=== PATIENT | female | born 1945 | race Caucasian/White ===

== ENCOUNTER → 2024-02-20 07:20 | Outpatient (REF) | payer MEDICARE, OTHER, SELFPAY | LOC: HWRCS 07:20 | PROVIDERS: ATTENDING PHYSICIAN Internal Medicine Cardiovascular Disease; FAMILY PHYSICIAN Family Medicine | DX: Z95.810 Presence of automatic (implantable) cardiac defibrillator (principal); I44.4 Left anterior fascicular block; I47.20 Ventricular tachycardia, unspecified; I34.0 Nonrheumatic mitral (valve) insufficiency | CPT/HCPCS: 93306 ==

== ENCOUNTER → 2024-03-17 10:22 | Outpatient (REF) | payer MEDICARE, OTHER, SELFPAY ==
[2024-03-17 11:07] LABS: % Basophils 0.6 % (0-2); % Eosinophils 5.8 % (0-6); % Immature Granulocytes 0.2 % (0-0.5); % Lymphocytes 25.7 % (20.5-51.1); % Monocytes 8.2 % (1.7-9.3); % Neutrophils 59.5 % (42.2-75.2); Absolute Eosinophils 0.3 10^3/uL (0-0.7); Absolute Lymphocytes 1.4 10^3/uL (1.2-3.4); Absolute Monocytes 0.4 10^3/uL (0.1-0.6); Absolute Neutrophils 3.2 10^3/uL (1.4-6.5); Hematocrit 38.1 % (37.0-47.0); Hemoglobin 12.7 g/dL (12.0-16.0); Mean Corp Hgb Conc. 33.3 g/dL (33.0-37.0); Mean Corpuscular Hgb 31.4 pg (27.0-31.0); Mean Corpuscular Volume 94.3 fL (81.0-99.0); Mean Platelet Volume 10.3 fL (7.4-10.4); Nucleated Red Blood Cells % 0 %; Platelet Count 187 10^3/uL (130-400); Red Blood Cell Count 4.04 10^6/uL (4.20-5.40); Red Cell Dist. Width 13.3 % (11.5-14.5); White Blood Cell Count 5.4 10^3/uL (4.8-10.8)
[2024-03-17 11:30] LABS: ALT (SGPT) 31 U/L (0-35); AST (SGOT) 31 U/L (14-36); Albumin 4.3 g/dl (3.5-5.0); Alkaline Phosphatase 83 U/L (38-126); Blood Urea Nitrogen 27 mg/dl (7-17); Carbon Dioxide 28 mmol/L (22-30); Chloride 104 mmol/L (98-107); Glucose 87 mg/dl (70-99); Potassium 4.8 mmol/L (3.5-5.1); Sodium 139 mmol/L (135-145); Total Bilirubin 0.7 mg/dl (0.2-1.3); Total Protein 6.5 g/dl (6.3-8.2); eGFR > 60.00
== END ==
LOC: SDSPAT 10:22
PROVIDERS: ATTENDING PHYSICIAN Internal Medicine Cardiovascular Disease; FAMILY PHYSICIAN Family Medicine; OTHER PHYSICIAN Internal Medicine Cardiovascular Disease
DX: Z01.818 Encounter for other preprocedural examination (principal); Z95.810 Presence of automatic (implantable) cardiac defibrillator; I47.21 Torsades de pointes; I44.4 Left anterior fascicular block
CPT/HCPCS: 36415; 80053; 85025; 93005

== ENCOUNTER 2024-03-26 06:26 | Day surgery (SDC) | payer MEDICARE, OTHER, SELFPAY ==
[2024-03-17 10:44] VITALS: BMI 28.5
[2024-03-26] VITALS (7 sets, daily range): BP systolic 112–130; BP diastolic 53–73; BMI 27.0
--- NOTE | 2024-03-26 08:28 | W.ICD.CONTRA ---
Post ICD/PEN RIDER-D
-
History of [place]?: No
LV Function
Left ventricular function study result?: Ejection Fraction >/= 40%
ACEI/ARB/ARNI
Patient already on ACEI/ARB/ARNI: No
Beta-Zoya
Patient already on Beta Zoya: Yes
--- NOTE | 2024-03-26 12:17 | ITS.CL.ICD ---
Security Incident Response Engineer - ICD
Implantable Cardioverter Defibrillator
Procedure Report:
Date of Procedure: Ju;y 2023..
Procedures: ICD pulse generator change.
Indication: Secondary prevention ICD. The initial ICD was placed at [facility] for recurrent syncope and inducible ventricular arrhythmias. The patient's life expectancy exceeds one year. No heart failure.
Performing physician: Kendrick Zuniga MD, [facility].
Implant: ICD Pulse Generator: [employer]; Model# D233; Serial# [id number].
Explanted ICD Pulse Generator (Implanted 10/18/2011):[employer]; Model E162; Serial# [id number].
Retained Leads (Implanted 10/18/2011):
RA: [employer]; Model# 4469; Serial# [id number].
RV: [employer]; Model# 0295; Serial# [id number].
Technique: A time-out was performed. The procedure site was identified. The anesthesia service anesthetized the patient. Preoperative cefazolin was administered before the skin incision. The patient was prepped and draped in the usual fashion. Local
anesthetic was applied to the left pre-pectoral subcutaneous tissue. A 3-inch incision was made over the pulse generator. The capsule was entered with Bovie cautery. The old ICD pulse generator was explanted. No Bovie cautery was applied to the lead
system. The leads were appropriately attached to the new ICD pulse generator. The pocket was irrigated with an antibiotic solution. Hemostasis was excellent. The device and leads were placed in the pocket. The incision was closed in three layers
with an absorbable suture. Steri-strips and an dressing were applied. There was no blood loss. There were no complications. No fluoroscopy was used.
Lead Analysis:
RA lead: P: 5 mV; Threshold: 0.7 V @ 0.4 ms; Impedance: 539 ohms.
RV lead: R: 12 mV; Threshold: 0.5 V @ 0.4 ms; Impedance: 794 ohms. Shock impedance 89 ohms. The SVC coil had a top normal impedance and was disabled in the shocking vector.
Final Programming: VT 180 bpm; VF 220 bpm; Jerrod: DDD 60-130 bpm.
Conclusion: Uncomplicated ICD change. The ICD system is MRI safe/conditional.
Recommendation: Routine post ICD care.
cc: Ioana Ojeda MD and Vince Escobar DO.
== END 2024-03-26 10:30 | disposition home or self-care (01) ==
LOC: CATH 06:26
PROVIDERS: ATTENDING PHYSICIAN Internal Medicine Cardiovascular Disease; FAMILY PHYSICIAN Family Medicine; OTHER PHYSICIAN Internal Medicine Cardiovascular Disease
DX: Z45.02 Encounter for adjustment and management of automatic implantable cardiac defibrillator (principal); I47.29 Other ventricular tachycardia; R55 Syncope and collapse; I48.91 Unspecified atrial fibrillation; E78.5 Hyperlipidemia, unspecified; I44.4 Left anterior fascicular block; I87.2 Venous insufficiency (chronic) (peripheral); I73.9 Peripheral vascular disease, unspecified; Z79.899 Other long term (current) drug therapy; Z79.890 Hormone replacement therapy; I47.10 Supraventricular tachycardia, unspecified
CPT/HCPCS: 33263; C1721